=== PATIENT | female | born 1985 | race Two or more races ===

== ENCOUNTER 2024-02-06 15:23 | Emergency (ER) | payer OTHER ==
[~2024-02-06] VITALS: Ht 200.7 cm; Wt 72.6 kg
== END 2024-02-06 17:27 | disposition home or self-care (01) ==
LOC: ER 15:23
DX: F41.9 Anxiety disorder, unspecified (principal)

== ENCOUNTER 2024-02-13 16:14 | Emergency (ER) | payer OTHER ==
[~2024-02-13] VITALS: Ht 175.3 cm; Wt 75.7 kg
[2024-02-13] MEDS ORDERED: CLONAZEPAM1 MG PO (16:22)
[2024-02-13] MEDS ORDERED: QUETIAPINE FUM400 MG PO (16:22)
[2024-02-13] MEDS ORDERED: RISPERIDONE0.5 MG PO (16:22)
[2024-02-13] MEDS ORDERED: BENZTROPINE ME0.5 MG PO (16:23)
[2024-02-13] MEDS ORDERED: KETOROLAC TROMETHAMINE 60 MG VIAL IM ONE (17:15)
[2024-02-13 17:49] LABS: HEMATOCRIT 42.9 % (36.0-45.00); HEMOGLOBIN 14.8 g/dL (12.0-15.00); MEAN CELL VOLUME 86.1 fL (80.00-100.00); MEAN CORPUSCULAR HEMOGLOBIN 29.6 pg (27.00-32.0); MEAN CORPUSCULAR HGB CONC 34.4 g/dl (32.0-36.0); PLATELET COUNT 314 K/uL (150-450); RED BLOOD COUNT 4.99 M/uL (4.00-6.00); RED CELL DISTRIBUTION WIDTH 13.6 % (11.5-14.5)
[2024-02-13 18:15] LABS: URINE APPEARANCE Clear; URINE BILIRRUBIN Negative (NEGATIVE); URINE BLOOD Negative; URINE COLOR Yellow; URINE GLUCOSE Negative (NEGATIVE); URINE LEUKOCYTE Negative; URINE NITRATE Negative; URINE PROTEIN Negative (NEGATIVE); URINE UROBILINOGEN 0.2 E.U./dl
[2024-02-13 18:20] LABS: URINE WBC 2.6 uL (0.0-23.2)
[2024-02-13 18:21] LABS: CALCIUM 9.3 mg/dL (8.5-10.1); CREATININE SERUM 0.81 mg/dL (0.55-1.02); GFR 78.31; POTASSIUM 3.86 mEq/L (3.5-5.1)
== END 2024-02-13 21:31 | disposition home or self-care (01) ==
LOC: ER 16:14
PROVIDERS: Emergency Medicine
DX: R53.81 Other malaise (principal)